=== PATIENT | male | born 1960 | race Caucasian/White ===

== ENCOUNTER 2022-07-03 06:56 | Emergency (ER) | payer SELFPAY ==
[2022-07-03] VITALS (14 sets, daily range): BP systolic 98–123; BP diastolic 61–68
[~2022-07-03] VITALS: Ht 175.3 cm; Wt 76.0 kg
[2022-07-03 07:45] LABS: HEMATOCRIT 43.4 % (39.0-50.0); HEMOGLOBIN 14.5 g/dl (14.0-18.0); IMMATURE GRANULOCYTES 0.1 % (0.0-5.0); MEAN CELL VOLUME 91.6 fL CALC (80.0-100.0); MEAN CORPUSCULAR HGB 30.6 pG CALC (26.0-32.0); MEAN CORPUSCULAR HGB CONC 33.4 g/dL CAL (32.0-36.0); NEUT# 5.8 thou/uL (1.82-7.42); RED BLOOD COUNT 4.74 mill/uL (4.70-6.10); RED CELL DISTRI WIDTH 13.3 % (11.5-15.5)
[2022-07-03 08:03] LABS: ALBUMIN 4.2 g/dL (3.2-5.0); ALKALINE PHOSPHATASE 81 u/l (38-126); ANION GAP 15 (6-22 (CALC)); BILIRUBIN, TOTAL 0.5 mg/dL (0.0-1.4); BUN 13 mg/dL (9-20); BUN/CREATININE RATIO 13 (12-20 (CALC)); CARBON DIOXIDE 26 mmol/l (22-30); CHLORIDE 100 mmol/l (95-108); GFR FOR AFR.AMER. > 60 ML/MIN (>=60 (CALC)); GFR OTHER RACES > 60 ML/MIN (>=60 (CALC)); SGOT/AST 30 u/l (17-59); SODIUM 137 mmol/l (137-146); TOTAL PROTEIN 7.9 g/dL (6.3-8.2)
--- NOTE | 2022-07-03 08:55 | NUR ---
SPEECH PATHOLOGY-- PT SCREENED BY PHYSICIAN UNDERWRITER. PHYSICIAN UNDERWRITER RECOMMENDS FULL EVALUATION AND INTERVENTION SOON POSSIBLE.
== END 2022-07-03 13:00 | disposition short-term general hospital (02) | DRG 607 ==
LOC: ED 06:56
PROVIDERS: Emergency Medicine
DX: R22.1 Localized swelling, mass and lump, neck (principal); J98.8 Other specified respiratory disorders; F17.210 Nicotine dependence, cigarettes, uncomplicated; R63.4 Abnormal weight loss
CPT/HCPCS: Q9967